=== PATIENT | male | born 1995 | race Caucasian/White ===

== ENCOUNTER 2018-09-16 12:07 | Emergency (ER) | payer SELFPAY ==
[2018-09-16 12:08] VITALS: BP 125/74; PULSE 95; RESP 16; TEMP 36.6; O2SAT 99; BMI 19.1
--- NOTE | 2018-09-16 12:19 | RAD_ITS ---
STUDY: X-RAY - LEFT HAND REASON FOR EXAM: Male, 22 years old. Pain following injury. TECHNIQUE: 3 view(s) of the hand. COMPARISON: None. FINDINGS: Normal radiocarpal articulation. Normal distal radioulnar joint. Normal visualized carpal bones. Normal carpal articulations Normal carpometacarpal articulation of the thumb. Normal second through fifth carpometacarpal joints. Normal metacarpi. Normal metacarpophalangeal joint of the thumb. Normal interphalangeal joint of the thumb. Normal proximal and distal phalanges of the thumb. Normal metacarpophalangeal joints of the second through fifth fingers. Normal proximal and distal interphalangeal joints of the second through fifth fingers. Normal phalanges of the second through fifth fingers. Soft tissue swelling. RAD/Hand Min 3 Views IMPRESSION: Soft tissue swelling. Electronically Signed: Arben Whittington MD at 12:57 EST Tel [phone], Service support ,
--- NOTE | 2018-09-16 12:50 | RAD_ITS ---
STUDY: X-RAY - RIGHT HAND REASON FOR EXAM: Male, 22 years old. Pain along the fifth digit following injury. TECHNIQUE: 3 view(s) of the hand. COMPARISON: None. FINDINGS: Normal radiocarpal articulation. Normal distal radioulnar joint. Normal visualized carpal bones. Normal carpal articulations Normal carpometacarpal articulation of the thumb. Normal second through fifth carpometacarpal joints. Radiograph or with the of the fifth metacarpal in keeping with an old boxer type fracture. Normal metacarpophalangeal joint of the thumb. Normal interphalangeal joint of the thumb. Normal proximal and distal phalanges of the thumb. Normal metacarpophalangeal joints of the second through fifth fingers. Normal proximal and distal interphalangeal joints of the second through fifth fingers. Normal phalanges of the second through fifth fingers. The soft tissue structures are unremarkable. RAD/Hand Min 3 Views IMPRESSION: Old boxer type fracture of the fifth metacarpal. No acute abnormality is seen. Electronically Signed: Arben Whittington MD at 13:43 EST Tel [phone], Service support ,
--- NOTE | 2018-09-16 13:55 | ED.VISSUMM ---
- ER Visit Summary Date of Service: 09/16/18 Chief Complaint: [Injury to both hands] History of Present Illness: The patient is a 22 M [presents to the emergency department complaint of injury to both hands that occurred last evening around midnight. Patient states that he been drinking and was out in the garage practicing his karate by punching blocks. Patient continued to have discomfort this morning and comes in for evaluation. Patient states most of the pain is in his left hand and wrist although he does have discomfort to his right hand as well. Patient has an old boxer's fracture to the right hand. Patient is up-to-date on tetanus. Patient is right-hand dominant.] Physical Examination: [HEENT-PERRLA, EOMI. Cranial nerves II through XII grossly intact. TMs clear. Mucous membranes moist. No adenopathy. Cardiovascular-regular rate and rhythm without murmur or ectopy Lungs-clear to auscultation, chest wall stable without crepitus or subcu emphysema Abdomen-normoactive bowel sounds, soft, nontender, no rebound or rigidity, no peritoneal signs. Extremities-intact ?4, normal range of motion, normal pulses. Left hand-patient has diffuse soft tissue swelling over the dorsum of the hand with some ecchymosis and bruising noted. Patient has pain mostly to the base of the third fourth and fifth metacarpal bases. No obvious deformity. Patient normal range of motion of all digits. Right hand-patient has some mild soft tissue swelling over the dorsum of the fifth MCP joint with some tenderness to palpation. No obvious deformity. Normal range of motion. Patient does have superficial abrasions to the dorsum of the MCP joints of both hands. Patient is adamant that he did not punch any individual and these are not human bites. Left wrist-patient has some mild diffuse tenderness to palpation over the carpal bones and distal radius. Test Results: [X-rays of the right and left hands were obtained and showed no acute fractures.] Emergency Department Course and Treatment: [She was given a wrist splint for the left hand at his request to help with being able to perform his job.] Treatment Plan: [Patient advised use ibuprofen or Tylenol for discomfort patient advised use ice to the area. He will be referred to primary care physician vice president corporate communications for no doc.] Disposition: [Discharged home in stable condition] Impression: [Bilateral hand contusions Left wrist sprain] This note was generated with [employer] dictation software. It may contain incorrect words, spelling, and punctuation that were not noted in review of the chart prior to signing ED Disposition - Plan for ED Patient: Chief Complaint: Upper Extremity Injury Referrals: Care Physician,No Primary [Primary Care Provider] -
--- NOTE | 2018-09-16 13:58 | ED.DCSUM_ITS ---
- ER Visit Summary Date of Service: 09/16/18 Chief Complaint: [Injury to both hands] History of Present Illness: The patient is a 22 M [presents to the emergency department complaint of injury to both hands that occurred last evening around midnight. Patient states that he been drinking and was out in the garage practicing his karate by punching blocks. Patient continued to have discomfort this morning and comes in for evaluation. Patient states most of the pain is in his left hand and wrist although he does have discomfort to his right hand as well. Patient has an old boxer's fracture to the right hand. Patient is up-to-date on tetanus. Patient is right-hand dominant.] Physical Examination: [HEENT-PERRLA, EOMI. Cranial nerves II through XII grossly intact. TMs clear. Mucous membranes moist. No adenopathy. Cardiovascular-regular rate and rhythm without murmur or ectopy Lungs-clear to auscultation, chest wall stable without crepitus or subcu emphysema Abdomen-normoactive bowel sounds, soft, nontender, no rebound or rigidity, no peritoneal signs. Extremities-intact ?4, normal range of motion, normal pulses. Left hand-patient has diffuse soft tissue swelling over the dorsum of the hand with some ecchymosis and bruising noted. Patient has pain mostly to the base of the third fourth and fifth metacarpal bases. No obvious deformity. Patient normal range of motion of all digits. Right hand-patient has some mild soft tissue swelling over the dorsum of the fifth MCP joint with some tenderness to palpation. No obvious deformity. Normal range of motion. Patient does have superficial abrasions to the dorsum of the MCP joints of both hands. Patient is adamant that he did not punch any individual and these are not human bites. Left wrist- patient has some mild diffuse tenderness to palpation over the carpal bones and distal radius. Test Results: [X-rays of the right and left hands were obtained and showed no acute fractures.] Emergency Department Course and Treatment: [She was given a wrist splint for the left hand at his request to help with being able to perform his job.] Treatment Plan: [Patient advised use ibuprofen or Tylenol for discomfort patient advised use ice to the area. He will be referred to primary care physician air traffic controller center for no doc.] Disposition: [Discharged home in stable condition] Impression: [Bilateral hand contusions Left wrist sprain] This note was generated with [employer] dictation software. It may contain incorrect words, spelling, and punctuation that were not noted in review of the chart prior to signing ED Disposition - Plan for ED Patient: Chief Complaint: Upper Extremity Injury Referrals: Care Physician,No Primary [Primary Care Provider] -
--- NOTE | 2018-09-16 13:58 | ED.DEP ---
ED Disposition - Plan for ED Patient: Chief Complaint: Upper Extremity Injury Instructions: ED Sprain Wrist, ED Contusion Upper Ext Referrals: Care Physician,No Primary [Primary Care Provider] - Lang Hernández MD [STAFF PHYSICIAN] - 5-7 Days
[2018-09-16 14:14] VITALS: BP 117/85; PULSE 86
== END 2018-09-16 14:15 | disposition home or self-care (01) ==
PROVIDERS: Emergency Provider Emergency Medicine
DX: S60.222A Contusion of left hand, initial encounter (principal); S60.221A Contusion of right hand, initial encounter; S63.502A Unspecified sprain of left wrist, initial encounter; W22.8XXA Striking against or struck by other objects, initial encounter; Y93.75 Activity, martial arts; Y92.015 Private garage of single-family (private) house as the place of occurrence of the external cause; Y99.9 Unspecified external cause status; Z72.0 Tobacco use
CPT/HCPCS: 73130; 99283